=== PATIENT | female | born 1960 | race Caucasian/White ===

== ENCOUNTER 2017-11-18 12:35 | Emergency (ER) | payer OTHER ==
[2017-11-18 12:59] VITALS: BP 159/84
--- NOTE | 2017-11-18 13:14 | UC ---
Skin Complaint HPI - HPI Summary HPI Summary: Pt presents with c/o worsening rash on bilateral lower anterior distal extremities. RAsh is itchy, painful and has "dry patches" pt noticed rash in February 2017 and reports that she was able to manage rash with moisturizing lotion . Pt states that she has had mild joint aches and pains, and one month ago had right hand swelling along the distal metacarpal phalangeal joint that has recently improved. Pt reports that she woke with moderate swelling of right hand and erythema to metacarpal phaleangeal joints 2-5. - History of Current Complaint Time Seen by Provider: 11/18/17 12:48 Stated Complaint: RASH COMPLAINT Hx Obtained From: Patient ?: No Onset/Duration: Gradual Onset, Lasting Weeks, Worse Since - onset Timing: Constant Onset Severity: Mild Current Severity: Moderate Pain Intensity: 0 Location: Discrete Character: Pruritus, Redness Aggravating Factor(s): Touch Alleviating Factor(s): OTC Creams/Salves Associated Signs & Symptoms: Positive: Rash - Allergy/Home Medications Allergies/Adverse Reactions: Allergies Allergy/AdvReac Type Severity Reaction Status Date / Time Penicillins Allergy Unknown Verified 11/18/17 12:52 Reaction Details Home Medications: Home Medications Ibuprofen TAB* [Advil TAB*] 1,000 mg PO Q6H PRN 11/18/17 [History Confirmed ] diphenhydrAMINE HCl [Benadryl Allergy] 75 mg PO ONCE PRN 11/18/17 [History Confirmed 11/18/17] Review of Systems Constitutional: Negative Skin: Rash Eyes: Negative ENT: Negative Respiratory: Negative Cardiovascular: Negative Gastrointestinal: Negative Genitourinary: Negative Motor: Negative Musculoskeletal: Arthralgia Neurological: Negative Psychological: Negative Is Patient Immunocompromised?: No All Other Systems Reviewed And Are Negative: Yes PMH/Surg Hx/FS Hx/Imm Hx Previously Healthy: Yes - Surgical History Surgical History: Yes Surgery Procedure, Year, and Place: TONSILS, THIGH DRAIN ([facility]) - Family History Known Family History: Positive: Cardiac Disease - Social History Occupation: Employed Full-time Lives: With Family Alcohol Use: Occasionally Substance Use Type: None Smoking Status (MU): Never Smoked Tobacco Have You Smoked in the Last Year: No Physical Exam Triage Information Reviewed: Yes Appearance: Well-Appearing Vital Signs: Initial Vital Signs Temp 98.7 F 11/18/17 12:54 Pulse 67 11/18/17 12:54 Resp 14 11/18/17 12:54 BP 159/84 11/18/17 12:54 Pulse Ox 100 11/18/17 12:54 Vital Signs Reviewed: Yes Eye Exam: Normal ENT Exam: Normal Dental Exam: Normal Neck exam: Normal Respiratory Exam: Normal Cardiovascular Exam: Normal Musculoskeletal Exam: Normal Neurological Exam: Normal Psychological Exam: Normal Skin: Positive: rashes - plaque like rash to anterior distal tib/fib. ~ 3 cm in diameter, dry scaly skin with excoriated center from pt scratching. silver plaques. Course/Dx - Course Course Of Treatment: I discussed with the pt my concern for psoriasis, and psoriatic arthritis and the need to follow up with PCP- pt reports establishing care with new provider in November. I also discussed with the pt the need to follow up with dermatology. Pt verbalized understanding and agreed to plan of care. - Differential Diagnoses - Skin Complaint Differential Diagnoses: Contact Dermatitis, Tinea - Diagnoses Provider Diagnoses: psoriasis Discharge - Sign-Out/Discharge Documenting (check all that apply): Patient Departure All imaging exams completed and their final reports reviewed: No Studies - Discharge Plan Condition: Stable Disposition: HOME Prescriptions: Calcipotriene/Betamethasone [Calcipotriene-Betameth Dp Oint] 60 gm TP DAILY 14 Days #1 oint...g. Patient Education Materials: Psoriasis (ED) Referrals: [facility] [Outside] - If Needed Jocelin Matos [Medical Doctor] - If Needed No Primary Care Phys,NOPCP [Primary Care Provider] - - Billing Disposition and Condition Condition: STABLE Disposition: Home
== END 2017-11-18 13:34 | disposition home or self-care (01) ==
LOC: UCCORT 12:35
DX: L40.9 Psoriasis, unspecified (principal); Z88.0 Allergy status to penicillin
CPT/HCPCS: 99202; G0463